=== PATIENT | male | born 2000 | race Caucasian/White ===

== ENCOUNTER 2019-12-05 13:04 | Emergency (ER) | payer BC ==
[~2019-12-05] VITALS: Ht 180.3 cm; Wt 106.8 kg
[2019-12-05 13:13] VITALS: BP 125/71; TEMP 98.1
[2019-12-05] MEDS ORDERED: CEPHALEXIN500 M1 PO (13:50)
[2019-12-05 14:00] VITALS: PULSE 83
== END 2019-12-05 13:59 | disposition home or self-care (01) ==
LOC: COL.ER 13:04
DX: S91.032A Puncture wound without foreign body, left ankle, initial encounter (principal); F17.210 Nicotine dependence, cigarettes, uncomplicated; Z23 Encounter for immunization; W20.8XXA Other cause of strike by thrown, projected or falling object, initial encounter; Y92.828 Other wilderness area as the place of occurrence of the external cause